=== PATIENT | female | born 2000 | race Caucasian/White ===

== ENCOUNTER 2018-11-06 13:28 | Emergency (ER) | payer BC, SELFPAY ==
[2018-11-06 13:46] VITALS: BP 115/67; PULSE 53; RESP 16; TEMP 36.6; O2SAT 100
--- NOTE | 2018-11-06 14:15 | W.ED.GENAD ---
Discharge Plan Disposition Patient Disposition: HOME Condition: Good Discharge Details Chief Complaint: Orthopedic Clinical Impression: Right knee sprain Primary Care Provider: [facility],Local ED Provider: Jorge Chaves Home Meds and New Rx's Prescriptions: No Action No Known Home Meds RF: 0 Discharge Instructions Instructions: Knee Sprain (ED) Additional Instructions: Please use ice regularly, and maximum dose of 1000 mg of Tylenol every 6 hours and 800 mg of ibuprofen every 6 hours. Please use knee brace as directed. If you note no improvement of your symptoms in the next 1-2 weeks please follow-up with an orthopedic surgeon at your hometown. If you notice any worsening of your symptoms, or any new symptoms such as vomiting, diarrhea, fever, chills, shortness of breath, chest pain, numbness, weakness, or fainting , please return immediately to the emergency department for reevaluation. Please follow up with your primary care provider as soon as possible for reassessment and reevaluation. As always, it was a pleasure participating in your medical care today. Discharge Data Discharge Date/Time-TO BE ENTERED AT DEPARTURE: 11/06/18 14:17 Medical Decision Making This is a pleasant 18-year-old female with no significant past medical history who presents today for evaluation of right-sided knee pain after falling while skiing yesterday. She has been able to ambulate and walk well without any difficulty. HEENT is minimal, improved with NSAIDs, and only really present when he is fully extended. Exam demonstrates no signs of significant joint effusion, bony abnormality or deformity. Signs and symptoms are clinically inconsistent with clot, severe effusion, or significant fracture. No indications for x-rays at this time. With a benign exam, a stable appearing knee, and pain that is minimal, and improved with NSAIDs feel that the patient be safely discharged home. Will recommend conservative therapy at this time with NSAIDs, hinged knee brace, and crutches as needed. Patient does not want crutches at this time. Recommend close follow-up with her primary care provider, and directions that if symptoms do not improve in the next few weeks with conservative therapy she may need referral for orthopedic evaluation. I have extensively reviewed the treatment plan and discharge instructions with the patient. I have addressed all patient concerns at this time. The patient was made aware of what symptoms to monitor for that would warrant a return to the emergency department. Discussed the plan with the patient, they demonstrate verbal understanding and agreement with our assessment and plan at this time. HPI General Date/Time Provider Initiated Documentation: 11/06/18 14:15. HPI Narrative: This is a 18-year-old female with no significant past medical history who presents today for evaluation of right knee pain. Patient states that yesterday she was skiing and she fell, she feels like she may have twisted her knee in the event. She did not hit it against anything hard, she was able to ski for the rest of the day without any difficulty. This morning she noted that her knee was slightly sore, and the soreness is continued throughout the day. It is improved with NSAIDs. There is no associated numbness tingling or weakness. She is able to walk on it without significant difficulty. It hurts the most when she fully extends her knee. She denies any popping, or other significant trauma. She has no other complaints or modifying factors at this time. Review of systems is negative for numbness, tingling, weakness, pelvis pain, foot pain, chest pain shortness of breath nausea vomiting diarrhea fever or chills. No previous surgeries. No pertinent family history. Related Data Home Medications Medication Instructions Recorded Confirmed Unknown [No Known Home Meds] 11/06/18 11/06/18 Allergies Allergy/AdvReac Type Severity Reaction Status Date / Time No Known Allergies Allergy Unverified 11/06/18 13:48 General Stated Complaint: Orthopedic SANJUANA: 4 Review of Systems Review of Systems All systems reviewed & are unremarkable except as noted in HPI and below PFSH Social History Smoking/Tobacco Use Status: Never Alcohol Intake: never Substance use type: does not use Exam Narrative Exam Narrative: 1.Const: Well-nourished, Well-developed, appearing stated age 2.Eyes: PERRL, no conjunctival injection, and symmetrical lids. 3.ENT: Atraumatic external nose and ears. Moist MM. Neck: Symmetric, trachea midline, No thyromegaly. 4.CVS: +S1/S2, No murmurs or gallops. Peripheral pulses 2+ and equal in all extremities. Brisk capillary refill in all extremities. 5.RESP: Unlabored respiratory effort. Clear to auscultation bilaterally. No wheezes rales or rhonchi 6.GI: Soft, Nontender/Nondistended, No hepatosplenomegaly. No guarding or rebound. 7.MSK: Normocephalic/Atraumatic, Extremities w/o deformity or ttp No cyanosis or clubbing, Normal movement of all extremities Right knee: The knee is stable to varus, valgus, and anterior drawer stress. No deformity. Patellar grind test is negative. Patient is able to walk without difficulty. No edema or warmth to the joint. No ttp to the patella, tibial plateau, or fibular head. Minimal pain with full extension of the knee. Patient describes this as a mild ache 8.Skin: Warm, Dry. No rashes or lesions. 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 Sensation grossly intact, no focal neurologic deficits. 10.Psych: (AAO) x3. Appropriate mood and affect Course Vital Signs Temperature 36.6 C 11/06/18 13:46 Pulse 53 L 11/06/18 13:46 Respiratory Rate 16 11/06/18 13:46 Blood Pressure 115/67 11/06/18 13:46 Pulse Oximetry 100 11/06/18 13:46 Temperature 36.6 C 11/06/18 13:46 Temperature Source Skin 11/06/18 13:46 Pulse 53 L 11/06/18 13:46 Respiratory Rate 16 11/06/18 13:46 Respiratory Effort Non-Labored 11/06/18 13:46 Blood Pressure 115/67 11/06/18 13:46 Blood Pressure Position Sitting 11/06/18 13:46 Pulse Oximetry 100 11/06/18 13:46 Oxygen Delivery Method Room Air 11/06/18 13:46 Oxygen Flow Rate 0 11/06/18 13:46 Pain Level 4 11/06/18 13:46
[2018-11-06 14:22] VITALS: BP 115/67; PULSE 53; RESP 16; TEMP 36.6; O2SAT 100
== END 2018-11-06 14:17 | disposition home or self-care (01) ==
PROVIDERS: Emergency Provider Student in an Organized Health Care Education/Training Program
DX: S83.91XA Sprain of unspecified site of right knee, initial encounter (principal); V00.321A Fall from snow-skis, initial encounter
CPT/HCPCS: 29505; 99283; 99282; L1830